=== PATIENT | female | born 1990 | race Caucasian/White ===

== ENCOUNTER → 2025-04-11 | Outpatient (CLI) | payer MEDICAID, SELFPAY ==
--- NOTE | 2025-04-11 16:31 | XR_ITS ---
EXAMINATION: Ankle, right 3 views . Technique: Ankle AP, oblique, lateral 3 views Date and time of exam: April 11, 2025 1645 hours INDICATIONS: Postop ankle surgery FINDINGS: Operative reduction internal fixation fractures distal tibia including medial malleolus with significant healing Fracture line is partly visible distal fibular shaft Orthopedic hardware satisfactory position IMPRESSION: Suggest continued follow-up to document more complete healing of the fracture distal fibular shaft
== END | disposition home or self-care (01) ==
PROVIDERS: PCP Family Medicine; Referring Provider Orthopaedic Surgery; Visit Provider Orthopaedic Surgery
DX: S82.871D Displaced pilon fracture of right tibia, subsequent encounter for closed fracture with routine healing (principal); X58.XXXD Exposure to other specified factors, subsequent encounter
CPT/HCPCS: 73610

== ENCOUNTER 2025-05-31 18:55 | Emergency (ER) | payer MEDICAID, SELFPAY ==
[2025-05-31 18:56] VITALS: BMI 33.4
[2025-05-31 19:13] VITALS: BP 139/81; PULSE 82; RESP 18; TEMP 36.9; O2SAT 99
--- NOTE | 2025-05-31 19:29 | PD.EDRME ---
Rapid Medical Screening Exam [facility] Arrival date/time: 05/31/25 18:55 34F with no significant PMH presents to ED with 1 day of pelvic pain/cramping and vaginal bleeding. Patient states she had positive home tests and thinks she's about 2-3 months . Chief Complaint: Vaginal Bleeding Vital signs: Vital Signs Temperature 98.4 F 05/31/25 19:13 Pulse Rate 82 05/31/25 19:13 Respiratory Rate 18 05/31/25 19:13 Blood Pressure 139/81 H 05/31/25 19:13 Pulse Oximetry (%) 99 05/31/25 19:13 Oxygen Delivery Method Room Air 05/31/25 19:13
[2025-05-31 20:05] LABS: Collection Type, Urine Clean Catch
[2025-05-31 20:20] LABS: Basophils # (Auto) 0.0 Thou/mm3 (0.0-0.2); Basophils % (Auto) 0 % (0-2.5); Eosinophils # (Auto) 0.2 Thou/mm3 (0.0-0.5); Eosinophils % (Auto) 2 % (0-10); Hematocrit 38.8 % (36.0-46.0); Hemoglobin 12.5 g/dL (12.0-16.0); Immature Granulocytes Auto 0.04 Thou/mm3 (0.00-0.00); Lymphocytes # (Auto) 2.3 Thou/mm3 (1.0-4.8); Lymphocytes % (Auto) 20 % (10-50); Mean Corpuscular HGB Conc 32.2 g/dl (31.0-37.0); Mean Corpuscular Hemoglobin 23.8 pg (25.0-35.0); Mean Corpuscular Volume 74 fL (80-100); Monocytes # (Auto) 0.6 Thou/mm3 (0.0-0.8); Monocytes % (Auto) 5 % (0-12); Neutrophils # (Auto) 8.6 Thou/mm3 (1.8-7.7); Neutrophils % (Auto) 73 % (37-80); Nucleated Red Blood Cell # 0.00 Thou/mm3 (0.00-0.00); Nucleated Red Blood Cell % 0 /100 WBC (0); Platelet Count 282 Thou/mm3 (140-440); RDW Standard Deviation 42.9 fL (36.4-46.3); Red Blood Count 5.26 Miln/mm3 (4.00-5.20); White Blood Count 11.7 Thou/mm3 (3.6-11.0)
[2025-05-31 20:23] LABS: Bacteria,Urine Rare; Bilirubin,Urine Negative (Negative); Blood,Urine 3+ (Negative); Clarity,Urine Clear (Clear/Hazy); Color,Urine Yellow (Lt Yel-Yel); Culture Indicated,Urine Not Indicated; Glucose, Urine Negative (Negative); Ketones,Urine Negative (Negative); Leukocyte Esterase,Urine Negative (Negative); Nitrite,Urine Negative (Negative); PH,Urine 6.0 (5.0-7.0); Protein,Urine 1+ (Neg - Trace); RBC,Urine 10 /hpf (0-3); Specific Gravity,Urine 1.046 (1.001-1.035); Squamous Epithelial Cell,Urine 9 /hpf (0-5); Urobilinogen,Urine Negative mg/dL (0.0-1.0); WBC,Urine 2 /hpf (0-5)
[2025-05-31 20:25] LABS: Alanine Aminotransferase 11 U/L (10-49); Albumin, Serum 4.6 gm/dL (3.5-5.0); Albumin/Globulin Ratio 1.4 (1.2-2.2); Alkaline Phosphatase 65 U/L (46-116); Anion Gap 10 (7-16); Aspartate Amino Transferase 33 U/L (0-34); BUN/Creatinine Ratio 14 Ratio (12-20); Bilirubin,Total 0.4 mg/dL (0.3-1.2); Blood Urea Nitrogen 10 mg/dL (9-23); Calcium 10.2 mg/dL (8.3-10.6); Calcium (Corrected) 10.2 mg/dL (8.5-10.1); Carbon Dioxide 23.3 mMol/L (20.0-31.0); Chloride 106 mMol/L (98-107); Creatinine (Component) 0.7 mg/dL (0.6-1.3); Estimated Creatinine Clearance 141.2 mL/min (>60); Globulin 3.3 gm/dL (2.3-3.5); Glucose 105 mg/dL (74-106); Osmolality,Calculated 276 (275-295); Potassium 3.8 mMol/L (3.4-5.1); Sodium 139 mMol/L (136-145); Total Protein 7.9 gm/dL (5.7-8.2); eGFR > 60 See Note
[2025-05-31 21:03] LABS: Beta HCG,Quantitative 11681 mIU/mL (<5.0)
--- NOTE | 2025-05-31 22:21 | PC.NURSE ---
N/A from lobby and outside. US also states they tried calling the pt. oleg
== END 2025-05-31 22:22 | disposition left against medical advice (07) ==
LOC: SERX 19:35
PROVIDERS: Physician Assistant; Emergency Provider Emergency Medicine
DX: O20.9 Hemorrhage in early pregnancy, unspecified (principal); Z3A.00 Weeks of gestation of pregnancy not specified; Z53.29 Procedure and treatment not carried out because of patient's decision for other reasons
CPT/HCPCS: 36415; 80053; 81001; 84702; 85025; 86900; 86901; 99283

== ENCOUNTER 2025-06-02 15:08 | Emergency (ER) | payer MEDICAID, SELFPAY ==
[2025-06-02 15:09] VITALS: BMI 33.4
[2025-06-02 15:16] VITALS: BMI 33.5
[2025-06-02 15:17] VITALS: BP 138/76; PULSE 76; RESP 18; TEMP 37.1; O2SAT 97
--- NOTE | 2025-06-02 15:29 | EDNOTE_ITS ---
ED Female Urogenital RME/HPI General Chief complaint: Urogenital-Female Stated complaint: POSSIBLE MISCARRIAGE Time Seen by Provider: 06/02/25 15:14 Arrival date/time: 06/02/25 15:08 This is a 34 year old female that was seen on 05/31/25 with complaints of lower abdominal cramping and vaginal bleeding. Patient did not stay for results or ultrasound in the left before being discharged. At that time patient's hCG was 53736. patient states she took a test last month and it was positive. Patient has not seek medical care. Patient reports she is a 4 para 1 patient also reports that she has had 1 miscarriage and 1 . Patient denies fever, nausea, vomiting, diarrhea. Patient denies any other symptoms. Related Data Home Medications ?Medication ?Instructions ?Recorded ?Confirmed vit no.95-ferrous 1 tab PO QDAY 02/23/24/03/23 fumarate 28 mg-folic acid 800 mcg tablet () Previous Rx's ?Medication ?Instructions ?Recorded acetaminophen 300 mg-codeine 15 mg 1 tab PO Q12H PRN p ain #14 tabs 04/27/24 tablet ibuprofen 800 mg tablet 800 mg PO Q8H PRN pain #30 t abs 04/27/24 Allergies Allergy/AdvReac Type Severity Reaction Status Date / Time No Known Allergies Allergy Verified 06/02/25 15:13 Review of Systems Review of Systems Systems Reviewed: All systems reviewed, normal except as documented Past Medical History Surgical History SURGICAL: Negative Section ED Exam Narrative Physical exam: VITAL SIGNS: Reviewed. GENERAL APPEARANCE: Alert and interactive, follows commands, no acute distress, HEAD AND FACE: Non-traumatic. ENT: PERRL, conjuctiva pink and clear, eyelid no trauma, Mucous membrane moist. NECK: Supple, nontender, no nuchal rigidity. CHEST: No tenderness, no crepitus, no paradoxical movement, no retractions. LUNGS: Clear, well ventilated, symmetric, no rales, no wheezing, no rhonchi, no stridor, good breath sounds bilaterally. HEART: Regular rate, regular rhythm, no murmur, no gallops. ABDOMEN: Soft, nondistended, no guarding, nontender NEUROLOGICAL: Gross motor function intact sensory function intact, Appropriate for age. MUSCULOSKELETAL: low back nontender, full range of motion. EXTREMITIES: No redness no swelling no skin breakdown on bilateral foot and leg. Distal neurovascular status intact bilateral foot SKIN: Color pink, dry, no rash, no lacerations, no abrasions, no contusions. Course Quality Measures none Orders Category Date Time Status US OB <= 14 weeks fetus Stat Exams 06/02/25 15:30 Completed Beta HCG,Quantitative Stat Lab 06/02/25 16:28 Completed CBC Stat Lab 06/02/25 16:28 Completed Comprehensive Metabolic Panel Stat Lab 06/02/25 16:28 Completed Type and Screen Stat Lab 06/02/25 16:28 Completed Urinalysis, C/S if Indicated Stat Lab 06/02/25 15:35 Completed Vital Signs Vital signs: Vital Signs Temperature 98.7 F 06/02/25 15:17 Pulse Rate 76 06/02/25 15:17 Respiratory Rate 18 06/02/25 15:17 Blood Pressure 138/76 H 06/02/25 15:17 Pulse Oximetry (%) 97 06/02/25 15:17 Oxygen Delivery Method Room Air 06/02/25 15:17 Urogenital - Female MDM Narrative MDM Narrative:: ultrasound: Findings: Uterus 11.7 cm Posterior uterine body area of probable fibroid degeneration 3.4 x 1.6 x 1.4 cm Endometrial stripe 2.7 cm Right ovary 3.1 cm arterial flow Left ovary 3.3 cm arterial flow Impression : No intrauterine gestation Posterior uterine body area probable fibroid degeneration 3.4 x 1.6 x 1.4 cm labs unremarkable hcg quant today is 6124 and previously 42523. Reviwed US with pt. It is likely she is having a misscarriage. pt told to told to follow up with pmd in 1-2 days. Come back to ED if symptoms change or worsen. Dragon dictation: Although this document has been carefully reviewed, there may still be some phonetic and other typographical errors. These errors are purely grammatical due to imperfections in the software program and should not be construed in any way to compromise the substance of the patient's medical care during this visit. Patient data External records reviewed:: [facility] previous records Clinical information provided by:: patient Social determinants that could affect healthcare access:: none Patient has the following chronic illnesses:: none How is presenting disease/condition affected by chronic disease/condition?: no chronic disease Evaluation data The following diagnostics were reviewed and interpreted by me:: lab results and radiology exam(s) Lab and/or radiology exams considered but not ordered:: none Interpretation Summary: see note Medications / Prescriptions Medications or Prescriptions considered but not ordered:: none Medication administrations:: none Consultations Consultation(s) initiated? (list below): No Diagnosis Urogenital Female Differential Diagnosis: urinary tract infection, dysmenorrhea and other (miscarriage, threatened misscarriage ) Most likely diagnosis given after review of the tests above:: misscarriage Admission Indicated Admission indicated?: not indicated Admission Request Was there a request for admission?: No Disposition Plan Disposition Plan: Discharge Discharge Attestation Discharge Attestation: The patient and all family members were given an opportunity to ask questions and understood the discharge instructions. Discharge instructions specifically effects, indications for sooner follow up or return to the emergency department, and the expected course of current diagnosis. Patient condition: Stable Discharge Plan Plan Patient Disposition: HOME (Self Care) Patient condition on transfer: Stable Prescriptions/Referrals Prescriptions/Med Rec: No Action acetaminophen-codeine 300-15 mg tablet 1 tab PO Q12H PRN (Reason: pain) Qty: 14 0RF ibuprofen 800 mg tablet 800 mg PO Q8H PRN (Reason: pain) Qty: 30 0RF PNV no.95-ferrous fumarate-FA [] 28 mg iron- 800 mcg tablet 1 tab PO QDAY Patient Comments: TAKE 1 TABLET BY MOUTH EVERY DAY Referrals: Boom Whitfield MD [Primary Care Provider] - In 1 week Problem List Clinical Impression: Miscarriage, Vaginal bleeding Patient/Caregiver Discharge Instructions Discharge Activity: activity as tolerated Education Materials: Understanding Miscarriage ... Additional Instructions: follow up with primary provider in 1-2 days. Come back to ED if symptoms change or worsen thank you Print Language: Syrian Stand Alone Forms: Magdalena Award Info., Patient Portal Info Letter PA/OPERATION RESEARCH ANALYST Supervising Physician KITTY/JAVIER Supervising Physician: chaz
--- NOTE | 2025-06-02 15:30 | XR_ITS ---
Examination: Complete OB ultrasound, less than 14 weeks, transabdominal Date and time of exam: June 02, 2025, 1553 hours INDICATIONS: Early by history with vaginal bleeding beginning 2 days ago Technique: Obstetrical ultrasound images less than 14 weeks performed via transabdominal imaging Findings: Uterus 11.7 cm Posterior uterine body area of probable fibroid degeneration 3.4 x 1.6 x 1.4 cm Endometrial stripe 2.7 cm Right ovary 3.1 cm arterial flow Left ovary 3.3 cm arterial flow Impression : No intrauterine gestation Posterior uterine body area probable fibroid degeneration 3.4 x 1.6 x 1.4 cm
[2025-06-02 16:03] LABS: Collection Type, Urine Voided
[2025-06-02 16:15] LABS: Bilirubin,Urine Negative (Negative); Blood,Urine 3+ (Negative); Color,Urine Yellow (Lt Yel-Yel); Culture Indicated,Urine Not Indicated; Glucose, Urine Negative (Negative); Ketones,Urine Negative (Negative); Leukocyte Esterase,Urine Negative (Negative); Nitrite,Urine Negative (Negative); PH,Urine 6.0 (5.0-7.0); Protein,Urine Trace (Neg - Trace); RBC,Urine 108 /hpf (0-3); Specific Gravity,Urine 1.033 (1.001-1.035); Squamous Epithelial Cell,Urine 3 /hpf (0-5); Urobilinogen,Urine Negative mg/dL (0.0-1.0); WBC,Urine 1 /hpf (0-5)
[2025-06-02 16:19] LABS: Clarity,Urine Hazy (Clear/Hazy)
[2025-06-02 17:02] LABS: Basophils # (Auto) 0.0 Thou/mm3 (0.0-0.2); Basophils % (Auto) 0 % (0-2.5); Eosinophils # (Auto) 0.1 Thou/mm3 (0.0-0.5); Eosinophils % (Auto) 2 % (0-10); Hematocrit 37.1 % (36.0-46.0); Hemoglobin 11.5 g/dL (12.0-16.0); Immature Granulocytes Auto 0.02 Thou/mm3 (0.00-0.00); Lymphocytes # (Auto) 2.2 Thou/mm3 (1.0-4.8); Lymphocytes % (Auto) 25 % (10-50); Mean Corpuscular HGB Conc 31.0 g/dl (31.0-37.0); Mean Corpuscular Hemoglobin 23.0 pg (25.0-35.0); Mean Corpuscular Volume 74 fL (80-100); Monocytes # (Auto) 0.5 Thou/mm3 (0.0-0.8); Monocytes % (Auto) 6 % (0-12); Neutrophils # (Auto) 5.9 Thou/mm3 (1.8-7.7); Neutrophils % (Auto) 67 % (37-80); Nucleated Red Blood Cell # 0.00 Thou/mm3 (0.00-0.00); Nucleated Red Blood Cell % 0 /100 WBC (0); Platelet Count 268 Thou/mm3 (140-440); RDW Standard Deviation 42.9 fL (36.4-46.3); Red Blood Count 5.00 Miln/mm3 (4.00-5.20); White Blood Count 8.8 Thou/mm3 (3.6-11.0)
[2025-06-02 17:41] LABS: Alanine Aminotransferase 9 U/L (10-49); Albumin, Serum 4.4 gm/dL (3.5-5.0); Albumin/Globulin Ratio 1.6 (1.2-2.2); Alkaline Phosphatase 57 U/L (46-116); Anion Gap 9 (7-16); Aspartate Amino Transferase 33 U/L (0-34); BUN/Creatinine Ratio 9 Ratio (12-20); Bilirubin,Total 0.4 mg/dL (0.3-1.2); Blood Urea Nitrogen 7 mg/dL (9-23); Calcium 9.2 mg/dL (8.3-10.6); Calcium (Corrected) 9.2 mg/dL (8.5-10.1); Carbon Dioxide 26.5 mMol/L (20.0-31.0); Chloride 105 mMol/L (98-107); Creatinine (Component) 0.8 mg/dL (0.6-1.3); Estimated Creatinine Clearance 127.8 mL/min (>60); Globulin 2.8 gm/dL (2.3-3.5); Glucose 95 mg/dL (74-106); Osmolality,Calculated 277 (275-295); Potassium 3.9 mMol/L (3.4-5.1); Sodium 140 mMol/L (136-145); Total Protein 7.2 gm/dL (5.7-8.2); eGFR > 60 See Note
[2025-06-02 17:50] LABS: Beta HCG,Quantitative 6124 mIU/mL (<5.0)
== END 2025-06-02 18:47 | disposition home or self-care (01) ==
PROVIDERS: Nurse Practitioner Family; Emergency Provider Family Medicine; PCP Family Medicine
DX: O03.9 Complete or unspecified spontaneous abortion without complication (principal)
CPT/HCPCS: 36415; 76801; 80053; 81001; 84702; 85025; 86850; 86900; 86901; 99283

== ENCOUNTER 2025-07-25 17:23 | Emergency (ER) | payer MEDICAID, SELFPAY ==
[2025-07-25 17:24] VITALS: BMI 33.7
[2025-07-25 17:42] VITALS: BP 139/79; PULSE 81; RESP 18; TEMP 37.1; O2SAT 98; BMI 33.7
--- NOTE | 2025-07-25 17:48 | PD.EDRME ---
Rapid Medical Screening Exam [facility] Arrival date/time: 07/25/25 17:23 34-year-old female presents to the emergency room today for complaint of vaginal bleeding patient reports miscarriage last month Chief Complaint: Vaginal Bleeding Vital signs: Vital Signs Temperature 98.8 F 07/25/25 17:42 Pulse Rate 81 07/25/25 17:42 Respiratory Rate 18 07/25/25 17:42 Blood Pressure 139/79 H 07/25/25 17:42 Pulse Oximetry (%) 98 07/25/25 17:42 Oxygen Delivery Method Room Air 07/25/25 17:42
--- NOTE | 2025-07-25 17:49 | XR_ITS ---
Examination: Transvaginal ultrasound of the pelvis, complete Technique: Transvaginal sonographic images pelvis performed using andrews scale imaging Exam date and time: July 25, 2025, 1841 hrs. Indications: Vaginal bleeding beginning one month ago Findings: Uterus 13.0 cm vascular lower uterine segment mass 5.6 x 4.9 x 5.1 cm Uterine fundal mass 1.9 x 1.4 x 1.6 cm Mild fluid in the endometrium Right ovary 4.3 cm arterial flow Left ovary obscured by bowel gas Uterine fundal endometrium 14 mm Impression: Large vascular mass in the lower uterine segment, differential would include malignant neoplasm of the uterus Recommend elective MRI pelvis follow-up and postcontrast.
[2025-07-25 18:22] LABS: Basophils # (Auto) 0.0 Thou/mm3 (0.0-0.2); Basophils % (Auto) 0 % (0-2.5); Eosinophils # (Auto) 0.1 Thou/mm3 (0.0-0.5); Eosinophils % (Auto) 1 % (0-10); Hematocrit 36.6 % (36.0-46.0); Hemoglobin 11.4 g/dL (12.0-16.0); Immature Granulocytes Auto 0.03 Thou/mm3 (0.00-0.00); Lymphocytes # (Auto) 2.3 Thou/mm3 (1.0-4.8); Lymphocytes % (Auto) 25 % (10-50); Mean Corpuscular HGB Conc 31.1 g/dl (31.0-37.0); Mean Corpuscular Hemoglobin 23.0 pg (25.0-35.0); Mean Corpuscular Volume 74 fL (80-100); Monocytes # (Auto) 0.5 Thou/mm3 (0.0-0.8); Monocytes % (Auto) 5 % (0-12); Neutrophils # (Auto) 6.3 Thou/mm3 (1.8-7.7); Neutrophils % (Auto) 68 % (37-80); Nucleated Red Blood Cell # 0.00 Thou/mm3 (0.00-0.00); Nucleated Red Blood Cell % 0 /100 WBC (0); Platelet Count 281 Thou/mm3 (140-440); RDW Standard Deviation 42.1 fL (36.4-46.3); Red Blood Count 4.96 Miln/mm3 (4.00-5.20); White Blood Count 9.3 Thou/mm3 (3.6-11.0)
[2025-07-25 18:30] LABS: INR 1.0 (0.9-1.3); Partial Thromboplastin Time 28.9 Seconds (22.0-36.0); Prothrombin Time 10.8 Seconds (9.0-12.2)
[2025-07-25 18:33] LABS: Alanine Aminotransferase 11 U/L (10-49); Albumin, Serum 4.2 gm/dL (3.5-5.0); Albumin/Globulin Ratio 1.6 (1.2-2.2); Alkaline Phosphatase 74 U/L (46-116); Anion Gap 11 (7-16); Aspartate Amino Transferase 35 U/L (0-34); BUN/Creatinine Ratio 13 Ratio (12-20); Bilirubin,Total 0.2 mg/dL (0.3-1.2); Blood Urea Nitrogen 10 mg/dL (9-23); Calcium 9.1 mg/dL (8.3-10.6); Calcium (Corrected) 9.1 mg/dL (8.5-10.1); Carbon Dioxide 26.1 mMol/L (20.0-31.0); Chloride 107 mMol/L (98-107); Creatinine (Component) 0.8 mg/dL (0.6-1.3); Estimated Creatinine Clearance 124.1 mL/min (>60); Globulin 2.7 gm/dL (2.3-3.5); Glucose 111 mg/dL (74-106); HCG,Qualitative Serum Positive; Osmolality,Calculated 286 (275-295); Potassium 3.8 mMol/L (3.4-5.1); Sodium 144 mMol/L (136-145); Total Protein 6.9 gm/dL (5.7-8.2); eGFR > 60 See Note
--- NOTE | 2025-07-25 19:06 | EDNOTE_ITS ---
ED OB Contraction Preg RMI/HPI General Chief complaint: Vaginal Bleeding Stated complaint: VAGINAL BLEEDING THAT HAS WORSEN IN THE LAST WEEK Time Seen by Provider: 07/25/25 21:05 Arrival date/time: 07/25/25 17:23 RME / HPI RME / HPI Narrative: 07/25/25 17:23 34-year-old female presents to the emergency room today for complaint of vaginal bleeding patient reports miscarriage last month DR. JONAS MAIN ED EVALUATION: Patient evaluated on 06/02/2025 and determined to have completed miscarriage. US at that time demonstrated degenerative fibroid within posterior uterine body. Patient currently presents with persistent vaginal bleeding, waxing and waning, for 2 months. Reports lightheadedness with standing and occasional sharp abdominopelvic pain. No nausea, vomiting, fever, chills, or diarrhea. No dysuria. PMH: Gestational diabetes. PSH: and left ankle ORAF. Allergies: none. Social: Reports marijuana use and occasional methamphetamine Related Data Home Medications ?Medication ?Instructions ?Recorded ?Confirmed vit no.95-ferrous 1 tab PO QDAY 02/23/24/03/23 fumarate 28 mg-folic acid 800 mcg tablet () Previous Rx's ?Medication ?Instructions ?Recorded acetaminophen 300 mg-codeine 15 mg 1 tab PO Q12H PRN p ain #14 tabs 04/27/24 tablet ibuprofen 800 mg tablet 800 mg PO Q8H PRN pain #30 t abs 04/27/24 Allergies Allergy/AdvReac Type Severity Reaction Status Date / Time No Known Allergies Allergy Verified 07/25/25 17:24 Review of Systems Review of Systems Systems Reviewed: All systems reviewed, normal except as documented Past Medical History Past Medical History ENDOCRINE: Positive Endocrine Disorders Social History SECOND HAND EXPOSURE: Yes SUBSTANCE USE: marijuana and methamphetamine SUBSTANCE LAST USED: unknown ED Exam Narrative Physical exam: GEN. APPEARANCE: The patient is alert awake oriented X-3 in no distress, lying down comfortably, does not look ill/toxic. Patient has good eye contact. Patient is cooperative. VITALS: All vitals were reviewed and the pulse ox is 98% on room air which is normal according to my interpretation. HEENT: Normocephalic, atraumatic. Pupils are equal and reactive. Oral mucosa is moist. Patent Nares NECK: Supple, nontender, no thyromegaly, no meningismus, no JVD, no step offs CHEST: Symmetrical, atraumatic, and with equal expansion , Nontender on palpation no deformity and no crepitus. CARDIOVASCULAR: Heart regular rhythm no murmur or gallop rub or extra beats. LUNGS: Clear to auscultation bilaterally with symmetrical chest rise. No laboring tachypnea or wheezing. No intercostal subcostal retraction. No rales and no rhonchi. ABDOMEN: Soft, obese, nontender to palpation, no guarding or rebound tenderness. There are no abnormal masses palpated. Active and normal bowel sounds. EXTREMITIES: Nontender. No edema. No cyanosis. Patient is able to move all 4 extremities well, with full ROM and good CSM. SKIN: Warm and dry, no jaundice or rashes noted. MUSCULOSKELETAL: No lubar or midline bony tenderness. There is no CVA tenderness. No paraspinal muscle spasm or tenderness. NEURO: Patient is SORENSON x 4, Cranial nerves II through XII grossly intact. There is no focal neurologic deficits noted. GCS is 15, PNS and INSPECTOR ASSEMBLY appear grossly intact. PSYCHIATRIC: Patient is in normal mood and affect, cooperative, no SI or HI or hallucinations. Course Quality Measures none Orders Category Date Time Status US transvaginal Stat Exams 07/25/25 17:49 Completed Beta HCG,Quantitative Stat Lab 07/25/25 18:04 Completed CBC Stat Lab 07/25/25 18:04 Completed Comprehensive Metabolic Panel Stat Lab 07/25/25 18:04 Completed HCG,Qualitative Serum Stat Lab 07/25/25 18:04 Completed Partial Thromboplastin Time Stat Lab 07/25/25 18:04 Completed Prothrombin Time with INR Stat Lab 07/25/25 18:04 Completed Acetaminophen Tab [Tylenol ES Tab] Med 07/25/25 18:45 Discontinued 1,000 mg PO X1 ONE Vital Signs Vital signs: Vital Signs Temperature 98.8 F 07/25/25 17:42 Pulse Rate 81 07/25/25 17:42 Respiratory Rate 18 07/25/25 17:42 Blood Pressure 139/79 H 07/25/25 17:42 Pulse Oximetry (%) 98 07/25/25 17:42 Oxygen Delivery Method Room Air 07/25/25 17:42 Vaginal Bleeding MDM Narrative MDM Narrative: Scribe Attestation: I, Ethel Sam, am scribing for and in the presence of Dr. Jonas. Provider Notation: Although this document has been carefully reviewed, there may still be some phonetic and other typographical errors. These errors are purely grammatical due to imperfections in the software program and should not be construed in any way to compromise the substance of the patient's medical care during this visit. Patient evaluated on 06/02/2025 and determined to have completed miscarriage. US at that time demonstrated degenerative fibroid within posterior uterine body. Patient currently presents with persistent vaginal bleeding, waxing and waning, for 2 months. Please see PE findings.?Laboratory markers including CBC show stable hemoglobin of 11.4 and normal platelet count of?281. Serum chemistries are unremarkable. UA with evidence of blood (noncath specimen). Quantum HCG of 68. Pelvic US demonstrates vascular lower uterine segment mass and additional fundal mass, previously noted, consistent with uterine fibroid.? No gestational sac present. Patient underwent a formal pelvic exam with a small amount of blood pooling in vault without increase upon valsalva. Remained hemodynamically stable. Will refer to [facility] for further evaluation. Will prescribe TXA if bleeding escalates. Precautionary instructions issued. Discussed case with Dr. Wilson who will F/U with patient closely. Patient data External records reviewed:: [facility] previous records (Reviewed prior ED records from 06/02/25. Patient was seen for Miscarriage.) Clinical information provided by:: patient Social determinants that could affect healthcare access:: substance use (Methamphetamine) Patient has the following chronic illnesses:: None reported How is presenting disease/condition affected by chronic disease/condition?: no chronic disease Evaluation data The following diagnostics were reviewed and interpreted by me:: lab results and radiology exam(s) Lab and/or radiology exams considered but not ordered:: None Interpretation Summary: RADIOLOGY Transvaginal US: Findings: Uterus 13.0 cm vascular lower uterine segment mass 5.6 x 4.9 x 5.1 cm Uterine fundal mass 1.9 x 1.4 x 1.6 cm Mild fluid in the endometrium Right ovary 4.3 cm arterial flow Left ovary obscured by bowel gas Uterine fundal endometrium 14 mm Impression: Large vascular mass in the lower uterine segment, differential would include malignant neoplasm of the uterus Recommend elective MRI pelvis follow-up and postcontrast. Medications / Prescriptions Medications or Prescriptions considered but not ordered:: None Medication administrations:: Medication Administration History Discontinued Medications Acetaminophen (Acetaminophen 500 Mg Tablet) 1,000 mg PO X1 ONE Stop: 07/25/25 18:46 Last Admin: 07/25/25 19:30 Dose: 1,000 mg Documented By: ARYAN See above if any Consultations Consultation(s) initiated? (list below): Yes Consultation #1 (Physician, Specialty, Details): Dr. Wilson made aware of the patient?s HPI, PMHx, lab and/or radiology results. Discussed treatment plan. Will follow recommendations. Time: 22:58 Diagnosis Vaginal Bleeding Differential Diagnosis: missed , threatened , dysfunctional uterine bleeding, incomplete , ectopic without intrauterine and vaginal bleeding Most likely diagnosis given after review of the tests above:: Pelvic mass in female, Fibroid, uterine Admission Indicated Admission indicated?: not indicated Explain why admission is indicated or not indicated:: Patient does not meet admission criteria Admission Request Was there a request for admission?: No Disposition Plan Disposition Plan: Discharge Discharge Attestation Discharge Attestation: The patient and all family members were given an opportunity to ask questions and understood the discharge instructions. Discharge instructions specifically effects, indications for sooner follow up or return to the emergency department, and the expected course of current diagnosis. Patient condition: Stable Discharge Plan Plan Patient Disposition: HOME (Self Care) Prescriptions/Referrals Prescriptions/Med Rec: No Action acetaminophen-codeine 300-15 mg tablet 1 tab PO Q12H PRN (Reason: pain) Qty: 14 0RF ibuprofen 800 mg tablet 800 mg PO Q8H PRN (Reason: pain) Qty: 30 0RF PNV no.95-ferrous fumarate-FA [] 28 mg iron- 800 mcg tablet 1 tab PO QDAY Patient Comments: TAKE 1 TABLET BY MOUTH EVERY DAY Referrals: Boom Whitfield MD [Primary Care Provider, Family Practice] - In 1 week Bennett Wilson MD [Physician, [facility]] - In 1 week Referral Note: Patient with abnormal vaginal bleeding with evidence of degenerating fibroid and lower uterine segment vascular mass- please assess. Problem List Clinical Impression: Pelvic mass in female, Fibroid, uterine Patient/Caregiver Discharge Instructions Discharge Activity: activity as tolerated Education Materials: What Are Fibroids?, Understanding Uterine Bleeding, ED Tumor, Uncertain Cause Additional Instructions: Avoid pelvic sex. Increase fluids to maintain adequate rest. [facility] with [facility] for [facility] to [facility] Print Language: Citizen Of [place] Stand Alone Forms: Magdalena Award Info., Patient Portal Info Letter
[2025-07-25 19:12] LABS: Beta HCG,Quantitative 68 mIU/mL (<5.0)
[2025-07-25] MEDS: ACETAMINOPHEN 500 MG TABLET 1000 MG PO (19:30)
[2025-07-25 20:42] VITALS: BP 132/72; PULSE 79; RESP 18; O2SAT 99
== END 2025-07-25 22:01 | disposition home or self-care (01) ==
PROVIDERS: Nurse Practitioner Primary Care; Emergency Provider Emergency Medicine; PCP Family Medicine
DX: D25.9 Leiomyoma of uterus, unspecified (principal); R19.09 Other intra-abdominal and pelvic swelling, mass and lump
CPT/HCPCS: 36415; 76830; 80053; 84702; 84703; 85025; 85610; 85730; 99283; A9270